=== PATIENT | female | born 1970 | race Caucasian/White ===

== ENCOUNTER 2023-08-09 08:33 | Outpatient (CLI) | payer BC, SELFPAY ==
--- OUTSIDE RECORDS SUMMARY | 2023-08-09 08:37 | XMS_ITS | Continuity of Care Document ---
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 [facility], [address], [place], [id number] , [place]. tel:[phone] Family History Family Member Type Diagnosis Age At Onset No Information Payers Payer name Insurance type Covered libertarian ID Ellen griffin(s) [facility] [id number] Social History Type Description Quantity Date Captured Comments Sex Female Smoking Status No Information Vital Signs Date / Time: Height Weight BMI Pulse Rate Blood Pressure Temperature Respiratory Rate Body Surface Area Head Circumference Head Circ. Percentile Wt./Tony. Percentile BMI percentile Pulse Ox Inhaled Ox 10:24 AM 65.30 in 68.300 kg (150.20 lbs) 24.8 8 kg/m eter (2) Chief Complaint And Reason For Visit No Information Reason For Referral Reason For Referral No Information History Of Present Illness Encounter Date Complaint History Of Prese nt Illness No Information Functional Status Date Functional Assessmen t No Information Instructions Date Instruction Additional Infor mation No Information Assessments Type Assessment Date No Information Patient Care Teams Name Effective Dates (start - stop) Status Members No Information
--- NOTE | 2023-08-09 10:00 | W.ANESCHARGE ---
Anesthesia Charges Start Date/Time Anesthesia Start Date: 08/09/23 Anesthesia Start Time: 09:37 Stop Date/Time Anesthesia Stop Date: 08/09/23 Anesthesia Stop Time: 10:00
--- NOTE | 2023-08-09 13:05 | W.ANESCHARGE ---
Anesthesia Charges Start Date/Time Anesthesia Start Date: 08/09/23 Anesthesia Start Time: 09:37 Stop Date/Time Anesthesia Stop Date: 08/09/23 Anesthesia Stop Time: 10:00
== END 2023-08-09 08:34 | disposition home or self-care (01) ==
PROVIDERS: Visit Provider Internal Medicine
DX: Z12.11 Encounter for screening for malignant neoplasm of colon (principal); K63.5 Polyp of colon; K57.30 Diverticulosis of large intestine without perforation or abscess without bleeding
CPT/HCPCS: 00811; 45380; 88305; J2704